=== PATIENT | female | born 1955 | race Caucasian/White ===

== ENCOUNTER 2019-01-23 13:20 | Observation (INO) ==
[2019-01-23] MEDS ORDERED: 0.9 % SODIUM CHLORIDE 1,000 ML IV ONE ×2 (14:00→15:21)
[2019-01-23 14:36] LABS: Basophils # (Auto) 0 K/mcL (0.0-0.3); Basophils % (Auto) 0.7 % (0.0-2.0); Eosinophils # (Auto) 0.1 K/mcL (0.0-0.7); Eosinophils % (Auto) 1.1 % (0.0-7.0); Granulocytes % (Auto) 77.5 % (38.0-78.0); Hematocrit 33.3 % (36.0-48.0); Hemoglobin 11.3 g/dL (12.0-15.0); Lymphocytes # (Auto) 0.9 K/mcL (1.5-4.8); Mean Cell Volume 89.8 fL (80.0-100.0); Mean Corpuscular HGB Conc 33.9 g/dL (31.0-36.0); Mean Platelet Volume 8.8 fL (7.4-10.4); Monocytes # (Auto) 0.3 K/mcL (0.1-0.9); Monocytes % (Auto) 5.7 % (1.0-12.0); Platelet Count 266 K/mcL (140-440); Red Cell Distribution Width 14.6 % (11.5-14.5); WBC 5.9 K/mcL (4.5-11.0)
[2019-01-23 14:54] LABS: ALT/SGPT 12 U/l (0-40); AST/SGOT 17 U/l (0-37); Albumin 4.6 gm/dL (3.2-5.2); Albumin/Globulin Ratio 1.5 (1.0-2.3); Alkaline Phosphatase 72 U/L (39-117); Bilirubin,Total 0.3 mg/dL (0.0-1.0); Blood Urea Nitrogen 45 mg/dl (8-23); Calcium 9.4 mg/dl (8.6-10.4); Carbon Dioxide 24 mmol/L (22-30); Chloride 104 mmol/L (96-108); Glomerular Filtration Rate 23; Glucose 115 mg/dL (70-105)
--- NOTE | 2019-01-23 15:44 | Emergency Department Note ---
General Adult HPI - General Chief complaint: Blood Pressure Problem Stated complaint: low blood pressure. Time Seen by Provider: 01/23/19 13:59 Source: patient Mode of arrival: ambulatory Limitations: no limitations - History of Present Illness HPI Narrative: 63-year-old female presents after being sent over from [facility] with hypotension. She presents with sudden onset of dizziness about an hour prior to arrival there. States she just eaten lunch and went back to work at [employer] when she started getting extremely dizzy. No matter what she did it just will not go away. Movement and sitting still or anything, nothing seemed to help. She felt nauseated related to the dizziness. Does not feel like the room spinning just incredibly dizzy and hard to keep her balance. States it has gotten better since she got here. Denies any recent cough, cold, or illness. No nausea or vomiting. No fever chills. No diarrhea. States she has no idea what this happened all of a sudden. She denies any pain anywhere. No headache. + orthostatic vs at [facility] - Related Data Home Medications Medication Instructions Recorded Confirmed Baclofen [Lioresal] 10 mg PO BID 01/23/19 01/23/19 Lisinopril [Zestril] 10 mg PO DAILY 01/23/19 01/23/19 Previous Rx's Medication Instructions Recorded ergocalciferol (vitamin D2) 50,000 50,000 unit PO QWEEK #10 cap 11/07/18 unit capsule Allergies Allergy/AdvReac Type Severity Reaction Status Date / Time iodine Allergy Unknown Hives Verified 01/23/19 12:54 Penicillins Allergy Unknown Hives Verified 01/23/19 12:54 venom-honey bee Allergy Unknown Verified 01/23/19 12:54 [bee venom (honey bee)] Review of Systems All systems ED: reviewed and negative except as stated. Past Medical History - Past Medical History [facility] Narrative: Medical History (Last Reviewed 01/23/19 @ 13:18 by Maria T Petit DO) BRCA gene positive (Chronic) Hypertension (Chronic) Vitamin B12 deficiency (Chronic) Chest pain (Acute) Nephrolithiasis (Chronic) Urinary tract infection (Acute) Right nephrolithiasis (Chronic) Actinic keratosis (Chronic) Skin tag (Chronic) Acute kidney injury (Acute) Bee sting reaction (Acute) Acute bacterial rhinosinusitis (Acute) Greater trochanteric bursitis of right hip (Chronic) Primary osteoarthritis of left knee (Chronic) Atypical mole (Chronic) Essential hypertension (Chronic) Migraines (Chronic) Joint pain, knee (Chronic) Arthritis (Chronic) Family history of total abdominal hysterectomy and bilateral salpingo- oophorectomy (ARPAN-BSO) (Chronic) Past Surgical History (Last Updated 10/12/18 @ 07:17 by Alysa Arnett) H/O: hysterectomy (Chronic) History of cholecystectomy (Chronic) History of lumpectomy (Chronic) Status post surgery (Chronic) Medical history: Reports: arthritis, hypertension, kidney stones Surgical history ED: Reports: cholecystectomy, hysterectomy, other (Lithotripsy) - Social History smoking status: Never smoker Alcohol use: Reports: Occasionally Drug use: Reports: none Physical Exam Limitations: no limitations General appearance: alert Head: atraumatic, normocephalic, normal inspection Eye: Present: normal appearance. Absent: conjunctival injection ENT: Present: mucous membranes moist Chest: Present: symmetric chest wall rise Respiratory: Present: normal lung sounds bilaterally. Absent: respiratory distress, rales/crackles, accessory muscle use Cardiovascular: Present: regular rate, normal rhythm, normal heart sounds Abdominal: Present: soft, normal bowel sounds. Absent: distention, tenderness, mass Neurological: Present: alert, oriented X3, normal gait Psychiatric: Present: normal affect, normal mood Skin: Present: warm, dry, intact, normal color. Absent: rash, cyanosis, diaphoresis Course Course Narrative: @ 1852 dr ruvalcaba agrees to accept pt. Vital Signs Temperature 97.2 F 01/23/19 13:21 Pulse Rate 77 01/23/19 13:21 Respiratory Rate 18 01/23/19 13:21 Blood Pressure 88/54 01/23/19 13:21 Pulse Oximetry (%) 100 01/23/19 13:21 Temperature 97.2 F 01/23/19 13:21 Pulse Rate 66 01/23/19 18:32 Respiratory Rate 12 01/23/19 18:32 Blood Pressure 130/63 01/23/19 18:32 Pulse Oximetry (%) 100 01/23/19 18:32 Medical Decision Making - Lab Data Lab results reviewed: Yes I reviewed the patient's lab results. Result diagrams: 01/23/19 14:09 01/23/19 14:09 Lab Results 01/23/19 01/23/19 01/23/19 Range/Units 14:06 14:09 14:09 WBC 5.9 (4.5-11.0) K/mcL RBC 3.70 L (4.00-5.20) M/mcL Hgb 11.3 L (12.0-15.0) g/dL Hct 33.3 L (36.0-48.0) % MCV 89.8 (80.0-100.0) fL MCH 30.5 (26.0-34.0) pg MCHC 33.9 (31.0-36.0) g/dL RDW 14.6 H (11.5-14.5) % Plt Count 266 (140-440) K/mcL MPV 8.8 (7.4-10.4) fL Gran % 77.5 (38.0-78.0) % Lymph % (Auto) 15.0 L (15.5-49.0) % Coos % (Auto) 5.7 (1.0-12.0) % Eos % (Auto) 1.1 (0.0-7.0) % Baso % (Auto) 0.7 (0.0-2.0) % Gran # 4.6 (1.8-8.0) K/mcL Lymph # (Auto) 0.9 L (1.5-4.8) K/mcL Coos # (Auto) 0.3 (0.1-0.9) K/mcL Eos # (Auto) 0.1 (0.0-0.7) K/mcL Baso # (Auto) 0 (0.0-0.3) K/mcL Sodium 140 (133-145) mmol/L Potassium 5.1 (3.3-5.1) mmol/L Chloride 104 (96-108) mmol/L Carbon Dioxide 24 (22-30) mmol/L Anion Gap 12.0 (8-16) BUN 45 H (8-23) mg/dl Creatinine 2.2 H (0.6-1.1) mg/dl GFR Calculation 23 Glucose 115 H (70-105) mg/dL Calcium 9.4 (8.6-10.4) mg/dl Total Bilirubin 0.3 (0.0-1.0) mg/dL AST 17 (0-37) U/l ALT 12 (0-40) U/l Alkaline Phosphatase 72 (39-117) U/L Troponin T < 0.01 (0-0.03) ng/ml Total Protein 7.6 (5.9-8.4) gm/dL Albumin 4.6 (3.2-5.2) gm/dL Globulin 3.0 (2.2-3.7) gm/dL Albumin/Globulin Ratio 1.5 (1.0-2.3) Urine Color Urine Appearance Urine pH (5.0-9.0) Ur Specific Downs (1.000-1.035) Urine Protein (NEG) mg/dL Urine Glucose (UA) (NEG) mg/dL Urine Ketones (NEG) mg/dL Urine Occult Blood (<0.03) mg/dL Urine Nitrate (NEG) Urine Bilirubin (NEG) mg/dL Urine Urobilinogen (NEG) mg/dL Ur Leukocyte Esterase (NEG) /uL Urine RBC (0-1) /hpf Urine WBC (0-4) /hpf Ur Squamous Epith Cells (0-4) /hpf Urine Bacteria (0) /hpf Hyaline Casts (0-2) /lpf Urine Mucus (0) /hpf 01/23/19 Range/Units 16:30 WBC (4.5-11.0) K/mcL RBC (4.00-5.20) M/mcL Hgb (12.0-15.0) g/dL Hct (36.0-48.0) % MCV (80.0-100.0) fL MCH (26.0-34.0) pg MCHC (31.0-36.0) g/dL RDW (11.5-14.5) % Plt Count (140-440) K/mcL MPV (7.4-10.4) fL Gran % (38.0-78.0) % Lymph % (Auto) (15.5-49.0) % Coos % (Auto) (1.0-12.0) % Eos % (Auto) (0.0-7.0) % Baso % (Auto) (0.0-2.0) % Gran # (1.8-8.0) K/mcL Lymph # (Auto) (1.5-4.8) K/mcL Coos # (Auto) (0.1-0.9) K/mcL Eos # (Auto) (0.0-0.7) K/mcL Baso # (Auto) (0.0-0.3) K/mcL Sodium (133-145) mmol/L Potassium (3.3-5.1) mmol/L Chloride (96-108) mmol/L Carbon Dioxide (22-30) mmol/L Anion Gap (8-16) BUN (8-23) mg/dl Creatinine (0.6-1.1) mg/dl GFR Calculation Glucose (70-105) mg/dL Calcium (8.6-10.4) mg/dl Total Bilirubin (0.0-1.0) mg/dL AST (0-37) U/l ALT (0-40) U/l Alkaline Phosphatase (39-117) U/L Troponin T (0-0.03) ng/ml Total Protein (5.9-8.4) gm/dL Albumin (3.2-5.2) gm/dL Globulin (2.2-3.7) gm/dL Albumin/Globulin Ratio (1.0-2.3) Urine Color Yellow Urine Appearance Clear Urine pH 5.0 (5.0-9.0) Ur Specific Downs 1.016 (1.000-1.035) Urine Protein Neg (NEG) mg/dL Urine Glucose (UA) Negative (NEG) mg/dL Urine Ketones Neg (NEG) mg/dL Urine Occult Blood Neg (<0.03) mg/dL Urine Nitrate Neg (NEG) Urine Bilirubin Neg (NEG) mg/dL Urine Urobilinogen Neg (NEG) mg/dL Ur Leukocyte Esterase Neg (NEG) /uL Urine RBC 0 (0-1) /hpf Urine WBC 2 (0-4) /hpf Ur Squamous Epith Cells 2 (0-4) /hpf Urine Bacteria 0 (0) /hpf Hyaline Casts 7 H (0-2) /lpf Urine Mucus Mod (0) /hpf - Radiology Data Radiology results reviewed: Yes I reviewed the patient's radiology results. Disposition Pt seen by ORDER ENTRY SPECIALIST/PA only: Yes Clinical Impression: Dehydration, Elevated serum creatinine, Elevated BUN, Dizziness Disposition: Xfer As Outpt/Obs ([facility]) Condition: Fair Referrals: Lakeisha Mcdonald ARNP [Primary Care Provider] - Time of Disposition: 18:55
--- NOTE | 2019-01-23 16:48 | Cat Scan Report ---
CLINICAL INFORMATION: Dizziness TECHNIQUE: Axial noncontrast images through the brain. Sagittal and coronal reformatted images. COMPARISON: None. FINDINGS: 8mm focal density in the left frontal lobe. This is intra-axial. No surrounding vasogenic edema or mass effect. Etiology is not certain. This may be a benign lesion such as cavernous angioma. Primary neoplasms such as oligodendroglioma is less likely due to the absence of mass effect or edema. Solitary metastasis is also less likely. MRI scan without and with contrast material contrast material is recommended for further evaluation. If there are comparison studies they should be reviewed. Right cerebral hemisphere is negative. No focal intra-axial abnormality. Brain volume is normal. There is no hydrocephalus. Brainstem and cerebellum are negative. No extra-axial, intracranial abnormality. No subdural hematoma. No subarachnoid hemorrhage. Basilar cisterns are normal. No calvarial lesion. Temporal bones are negative IMPRESSION: 1. 8 mm intra-axial mass in the left frontal lobe. 2. Increased density within this mass. No surrounding vasogenic edema or mass effect. Appearance is most consistent with a benign intra-axial process such as cavernous angioma. MRI scan with contrast material is recommended for further evaluation. 3. No other abnormality. Interpreted and Authenticated by: Barry Robles 01/23/19
[2019-01-23] MEDS ORDERED: LORazepam 2 MG/ML VIAL IV ONE (17:06)
[2019-01-23 17:25] LABS: Appearance,Urine CLEAR; Bacteria,Urine 0 /hpf (0); Bilirubin,Urine NEG (NEG); Color,Urine YELLOW; Glucose,Urine (UA) NEGATIVE (NEG); Ketones,Urine NEG (NEG); Leukocyte Esterase,Urine NEG /uL (NEG); Mucus,Urine MOD /hpf (0); Nitrate,Urine NEG (NEG); Protein,Urine NEG (NEG); Specific Gravity,Urine 1.016 (1.000-1.035); Urine Blood NEG mg/dL (<0.03); Urine Hyaline Cast 7 /lpf (0-2); Urine RBC 0 /hpf (0-1); Urine Squamous Epithelial Cell 2 /hpf (0-4); Urine WBC 2 /hpf (0-4); Urobilinogen,Urine NEG (NEG)
--- NOTE | 2019-01-23 18:46 | Magnetic Resonance Report ---
CLINICAL INFORMATION: Follow-up abnormal CT scan TECHNIQUE: Sagittal, axial, coronal images of the brain. Contrast material could not be administered as this patient has a history of renal failure COMPARISON: CT scan dated 01/23/2019 FINDINGS: Focal area of susceptibility in the left frontal lobe. This corresponds in location to the dense abnormality on CT scan. There is no surrounding vasogenic edema. There is no mass effect. Appearance is consistent with a benign lesion and is probably a cavernous angioma. There may be a very small focus of susceptibility in the periventricular white matter, posterior right holland radiata. His could be a very small cavernous angioma. No other focal areas of susceptibility. No other focal signal abnormalities. There is no restricted diffusion. Brain volume is normal. No hydrocephalus. Brainstem and cerebellum are negative. No extra-axial, intracranial abnormality. Normal flow void within vessels at the base of the brain Temporal bones are negative. Paranasal sinuses are negative IMPRESSION: 1. Focal area of susceptibility in the left frontal lobe. No associated mass effect or vasogenic edema 2. Findings are consistent with incidental cavernous angioma 3. No acute abnormality Interpreted and Authenticated by: Barry Robles 01/23/19
--- NOTE | 2019-01-23 18:59 | Internal Med History&Physical ---
Medical - H&P: HPI Patient information: Note initiated : 01/23/19 at 6:55 pm Service Date, if different from initiated Date: [] Patient: Claudette Richardson a 63 y/o F admitted on for Low Blood Pressure.. Chief Complaint: [] Chief complaint: Dizziness and weakness History of present illness: Ms. Richardson is a 63 year old F with a known history of hypertension/chronic back pain and migraine who presents to the ER along with her after experiencing sudden onset dizziness that started while at work and bilirubin. Patient noted an intense sensation of spinning along with difficulty balancing. Symptoms persisted for over 30 minutes without any relief. She endorses associated nausea/headache but denies vision changes or unilateral weakness or chest palpitation/tearing neck pain. With increasing concerns to presents to the ER. Initial work-up was consistent with hypotension/elevated creatinine at 2.2 from a baseline of 1.2. CT head/MRI brain did not reveal any acute event/stroke. Subsequently hospitalist service was consulted. She was positive on orthostatics. Patient denies recent diarrhea dysuria/dehydration or diuretic use. She further denies overdosing on antihypertensives. She usually drinks 3 to 4 quarts of water a day. At the time of evaluation patient is accompanied with her . He was able to provide answer to most of the questions. She endorses to history as above. Denies prior similar episodes, blurred vision, loss of consciousness, diarrhea or dysuria. She was recently treated for UTI last month. Review of systems A 10 point review of system was performed and is negative except was discussed above Medical - H&P: PMH Medical history: BRCA gene positive (Chronic) Hypertension (Chronic) Vitamin B12 deficiency (Chronic) Chest pain (Acute) Nephrolithiasis (Chronic) Urinary tract infection (Acute) Right nephrolithiasis (Chronic) Actinic keratosis (Chronic) Skin tag (Chronic) Acute kidney injury (Acute) Acute kidney injury on 03/09/17 with slow recovery in the following 10 days. No blood work available since 03/18/17. Renal panel today. If abnormal further work up and follow up will be scheduled. . Bee sting reaction (Acute) Acute bacterial rhinosinusitis (Acute) Greater trochanteric bursitis of right hip (Chronic) Primary osteoarthritis of left knee (Chronic) Atypical mole (Chronic) Essential hypertension (Chronic) Migraines (Chronic) Joint pain, knee (Chronic) Arthritis (Chronic) Family history of total abdominal hysterectomy and bilateral salpingo- oophorectomy (ARPAN-BSO) (Chronic) Surgical History H/O: hysterectomy (Chronic) History of cholecystectomy (Chronic) History of lumpectomy (Chronic) Status post surgery (Chronic) Kidney stone removal Family History Father Lung cancer Unknown Diabetes Paternal Mother Brain aneurysm Social History marital status: physical activity: walking smoking status: Never smoker alcohol intake frequency: a few times a month substance use type: does not use seatbelt use: always Medical - H&P: Meds Home Medications Medication Instructions Recorded Confirmed Type ergocalciferol (vitamin D2) 50,000 50,000 unit PO QWEEK #10 cap 11/07/18 Rx unit capsule Baclofen [Lioresal] 10 mg PO BID 01/23/19 01/23/19 History Lisinopril [Zestril] 10 mg PO DAILY 01/23/19 01/23/19 History Allergies Allergy/AdvReac Type Severity Reaction Status Date / Time iodine Allergy Unknown Hives Verified 01/23/19 12:54 Penicillins Allergy Unknown Hives Verified 01/23/19 12:54 venom-honey bee Allergy Unknown Verified 01/23/19 12:54 [bee venom (honey bee)] Medical - H&P: Exam - Constitutional Vitals: Temp Pulse Resp BP Pulse Ox 97.2 F 66 12 130/63 100 01/23/19 13:21 01/23/19 18:32 01/23/19 18:32 01/23/19 18:32 01/23/19 18:32 General appearance: no acute distress Exam: Obese Head normocephalic Oral cavity dry Eye movement symmetrical No ear nose discharge Neck no lymphadenopathy or JVD S1-S2 regular rhythm no murmur Diminished breath sounds bases abdomen soft nontender nondistended pendulous lower extremity no cyanosis clubbing no joint swelling Skin no suspicious lesion Psych alert cooperative but mildly anxious Neuro nonfocal Medical - H&P: Reslt - Labs CBC & Chem 7: 01/23/19 14:09 01/23/19 14:09 Labs: Short CBC 01/23/19 Range/Units 14:09 WBC 5.9 (4.5-11.0) K/mcL Hgb 11.3 L (12.0-15.0) g/dL Hct 33.3 L (36.0-48.0) % Plt Count 266 (140-440) K/mcL BMP 01/23/19 14:09 Sodium 140 Potassium 5.1 Chloride 104 Carbon Dioxide 24 BUN 45 H Creatinine 2.2 H Glucose 115 H Calcium 9.4 Cardiac Enzymes 01/23/19 Range/Units 14:06 Troponin T < 0.01 (0-0.03) ng/ml Liver Function 01/23/19 Range/Units 14:09 Total Bilirubin 0.3 (0.0-1.0) mg/dL AST 17 (0-37) U/l ALT 12 (0-40) U/l Alkaline Phosphatase 72 (39-117) U/L Albumin 4.6 (3.2-5.2) gm/dL Urine 01/23/19 Range/Units 16:30 Urine Color Yellow Urine Appearance Clear Urine pH 5.0 (5.0-9.0) Ur Specific Mart 1.016 (1.000-1.035) Urine Protein Neg (NEG) mg/dL Urine Glucose (UA) Negative (NEG) mg/dL Medical - H&P: A/P (1) Acute kidney injury Problem details: Current visit: Yes Status: Acute * Acute on chronic kidney injury. Creatinine elevation over 80% of baseline now at 2.2. Likely prerenal. Check renal ultrasound and rule out obstructive uropathy. Check UA. Hold STEPAN inhibitor. * Severe dizziness secondary to orthostatic hypotension and volume depletion. Continue crystalloids. MRI brain no evidence of brainstem/cerebellar CVA. Echocardiogram to rule out valvular insufficiency. Check carotid ultrasound * Orthostatic hypotension. Hold antihypertensives. Check echocardiogram to rule out valvular etiology. Continue crystalloids and encourage oral fluids intake. * History of chronic back pain continue baclofen * History of migraine continue as needed Tylenol/Excedrin * Full code * Prophylaxis heparin Plan * Observation admit * Crystalloids * Monitor renal function * Echocardiogram/carotid ultrasound * Renal ultrasound
[2019-01-23] MEDS ORDERED: MELATONIN 3 MG TABLET PO PRN (21:08)
[2019-01-23] MEDS ORDERED: MAGNESIUM SULFATE 2 GM/50 ML BAG IV PRN (21:08)
[2019-01-23] MEDS ORDERED: POTASSIUM CHLORIDE 20 MEQ PACKET PO PRN (21:08)
[2019-01-23] MEDS ORDERED: ACETAMINOPHEN 325 MG TABLET PO PRN (21:08)
[2019-01-23] MEDS ORDERED: guaiFENesin/CODEINE 10 ML UDC PO PRN (21:08)
[2019-01-23] MEDS ORDERED: ONDANSETRON 4 MG/2 ML VIAL IV PRN (21:08)
[2019-01-23] MEDS ORDERED: ACETAMINOPHEN 650 MG/65 ML BOTTLE IV PRN (21:08)
[2019-01-23] MEDS ORDERED: SENNOSIDES/DOCUSATE SODIUM 1 TAB TABLET PO SCH (21:08)
[2019-01-23] MEDS: 0.9 % SODIUM CHLORIDE 1,000 ML IV SCH (21:22)
[2019-01-23] MEDS: 0.9 % SODIUM CHLORIDE 10 ML SYRINGE IV SCH (21:23)
[2019-01-23] MEDS: DOCUSATE SODIUM 100 MG CAPSULE PO SCH (21:32)
[2019-01-23] MEDS: HEPARIN 5,000 UNIT/ML VIAL SQ SCH (21:33)
--- NOTE | 2019-01-24 05:47 | Ultrasound Report ---
CLINICAL INFORMATION: Dizziness COMPARISON: None. TECHNIQUE: Carotid arteries were imaged in sagittal and transverse planes using 5 mHz linear probe: Doppler, color, and 2D. FINDINGS: There is atherosclerotic plaque in the common carotid arteries and proximal internal carotid arteries bilaterally. Plaque appears bilaterally symmetric and is considered moderate. Plaque is heterogeneous without discrete ulceration. No significant flow disturbance. No velocity elevation. No hemodynamically significant stenosis Maximum Systolic Flow Velocity: - Right common carotid artery: 109 cm/sec - Right internal carotid artery: 87 cm/sec - Left common carotid artery: 90 cm/sec - Left internal carotid artery: 91 cm/sec Vertebral arteries are antegrade patent bilaterally IMPRESSION: 1. Atherosclerotic plaque in the common carotid arteries and internal carotid arteries bilaterally. 2. No hemodynamically significant stenosis Interpreted and Authenticated by: Barry Robles 01/24/19
[2019-01-24 05:52] LABS: Hematocrit 29.4 % (36.0-48.0); Hemoglobin 10.2 g/dL (12.0-15.0); Mean Corpuscular HGB Conc 34.9 g/dL (31.0-36.0); Mean Platelet Volume 9.8 fL (7.4-10.4); Platelet Count 186 K/mcL (140-440); RBC 3.27 M/mcL (4.00-5.20); Red Cell Distribution Width 14.2 % (11.5-14.5); WBC 6.3 K/mcL (4.5-11.0)
[2019-01-24] MEDS: 0.9 % SODIUM CHLORIDE 10 ML SYRINGE IV SCH (06:03)
[2019-01-24 06:28] LABS: ALT/SGPT 10 U/l (0-40); AST/SGOT 16 U/l (0-37); Albumin 3.4 gm/dL (3.2-5.2); Albumin/Globulin Ratio 1.3 (1.0-2.3); Alkaline Phosphatase 74 U/L (39-117); Bilirubin,Direct < 0.2 mg/dL (0.0-0.3); Bilirubin,Total 0.2 mg/dL (0.0-1.0); Blood Urea Nitrogen 41 mg/dl (8-23); Calcium 8.6 mg/dl (8.6-10.4); Carbon Dioxide 20 mmol/L (22-30); Chloride 111 mmol/L (96-108); Globulin 2.6 gm/dL (2.2-3.7); Glomerular Filtration Rate 28; Glucose 94 mg/dL (70-105); Lactate Dehydrogenase 183 U/L (94-250); Phosphorous 4.5 mg/dL (2.7-4.5); Triglycerides 109 mg/dl (<150); Uric Acid 7.1 mg/dL (2.5-8.0)
[2019-01-24] MEDS: 0.9 % SODIUM CHLORIDE 1,000 ML IV SCH (08:03)
--- NOTE | 2019-01-24 08:28 | Ultrasound Report ---
CLINICAL INFORMATION: Renal failure TECHNIQUE: Pickering scale and color flow Doppler spectral imaging COMPARISON: None. FINDINGS: Right kidney measures 9.5 x 4.4 x 5.1 cm. No solid or cystic mass. No detectable calculi. There is no hydronephrosis. Normal renal cortex. Left kidney measures 10.7 x 4.8 x 5.8 cm. No solid or cystic mass. There is no hydronephrosis. No detectable calculi. Normal renal cortex. Prevoid bladder volume measures 82 mL. Bilateral ureteral jets identified. No significant post void residual IMPRESSION: Negative renal ultrasound Interpreted and Authenticated by: Barry Robles 01/24/19
[2019-01-24] MEDS ORDERED: LISINOPRIL 10 MG TABLET PO SCH (09:00)
[2019-01-24] MEDS ORDERED: MULTIVIT,THER IRON,CA,FA & MIN 1 TABLET PO SCH (09:00)
[2019-01-24] MEDS: DOCUSATE SODIUM 100 MG CAPSULE PO SCH (09:29)
[2019-01-24] MEDS: HEPARIN 5,000 UNIT/ML VIAL SQ SCH (09:31)
[2019-01-24 09:36] LABS: Eosinophils % (Manual) 1 % (0-7); Lymphocytes % 24 % (15-49); Monocytes % (Manual) 6 % (1-12); Platelet Estimate NORMAL (NORMAL); RBC Morphology NORMAL (NORMAL); Reactive Lymphocytes 1 % (0-2); Segmented Neutrophils % 68 % (38-78)
--- NOTE | 2019-01-24 12:14 | Discharge Summary ---
Medical - DS: Prov Patient information: Note initiated : 01/24/19 at 12:12 pm Service Date, if different from initiated Date: [] Patient: Claudette Richardson a 63 y/o F admitted on 01/23/19 for Low Blood Pressure.. Chief Complaint: [] Date of admission: 01/23/19 19:50 Discharge date: 01/24/19 Primary care physician: Lakeisha Mcdonald Consults: 01/23/19 18:54 Consult to Physician [CONS] Stat Comment: Consulting Provider: Bart Rios Reason For Exam: Physician to Consult Medical - DS: Meds - Discharge Medications Prescriptions: Melatonin [Melatonin 3Mg Tablet] 3 mg PO HSP PRN #30 tab PRN Reason: Insomnia Transmission Status: Pending to [facility] Active and Home Medications: Home Medications ergocalciferol (vitamin D2) 50,000 unit capsule 50,000 unit PO QWEEK #10 cap 11/07/18 [Rx Confirmed 01/23/19 Last Taken 01/23/19 06:00] Baclofen [Lioresal] 10 mg PO BID 01/23/19 [History Confirmed 01/23/19 Last Taken 01/23/19 06:00] Lisinopril [Zestril] 5 mg PO DAILY #0 tab 01/24/19 [Rx Last Taken Unknown] Medical - DS: Hosp Hospital Course: Discharge diagnosis * Acute on chronic kidney injury. Creatinine elevation over 80% of baseline on presentation but now down from 2.2-1.9. Clinically improving with adequate hydration. Lower dose of lisinopril to 5 mg. Recommend adequate hydration on discharge. Renal ultrasound negative. Recommend outpatient follow-up with nephrology/BMP on discharge * Severe dizziness secondary to orthostatic hypotension and volume depletion. Clinically resolved with aggressive crystalloids. Neuroimaging/carotid ultrasound negative * Orthostatic hypotension. Secondary to volume depletion. Lower dose of lisinopril to 5 mg. Continue adequate oral fluids * History of chronic back pain -part of the symptoms may be attributed to baclofen. Advised to hold baclofen for 1 week * History of migraine continue as needed Tylenol/Excedrin Brief hospital course Ms. Richardson is a 63 year old F with a known history of hypertension/chronic back pain and migraine who presents to the ER along with her after experiencing sudden onset dizziness that started while at work and bilirubin. Patient noted an intense sensation of spinning along with difficulty balancing. Symptoms persisted for over 30 minutes without any relief. She endorses associated nausea/headache but denies vision changes or unilateral weakness or chest palpitation/tearing neck pain. With increasing concerns to presents to the ER. Initial work-up was consistent with hypotension/elevated creatinine at 2.2 from a baseline of 1.2. CT head/MRI brain did not reveal any acute event/stroke. Subsequently hospitalist service was consulted. She was positive on orthostatics. Patient denies recent diarrhea dysuria/dehydration or diuretic use. She further denies overdosing on antihypertensives. She usually drinks 3 to 4 quarts of water a day. At the time of evaluation patient is accompanied with her . He was able to provide answer to most of the questions. She endorses to history as above. Denies prior similar episodes, blurred vision, loss of consciousness, diarrhea or dysuria. She was recently treated for UTI last month. 01/24-patient doing well. No overnight events. Dizziness resolved. Pressure is much improved. Currently 120 systolic on 5 mg lisinopril. Creatinine downtrending from 2.2-1.9. Recommend follow-up with nephrology as outpatient. I recommend BMP but prior to follow-up with nephrology. Neuroimaging unremarkable. Discharge diagnosis: . - Time Spent with Patient Total time spent providing and/or coordinating discharge services: Greater than 30 minutes Medical - DS: Exam - Constitutional Vitals: Vital Signs Temp Pulse Pulse Resp BP BP BP 01/24/19 11:43 98 F 83 16 122/66 01/24/19 08:00 97.8 F 57 L 16 115/64 01/24/19 02:46 97.3 F 70 16 131/76 01/23/19 23:32 97.6 F 69 12 118/62 01/23/19 19:55 97.5 F 66 16 165/90 01/23/19 19:53 64 12 123/66 01/23/19 19:41 64 123/66 01/23/19 19:21 64 12 127/65 01/23/19 19:01 12 131/69 01/23/19 18:41 67 14 121/61 01/23/19 18:32 66 12 130/63 01/23/19 17:46 67 13 01/23/19 17:41 76 13 142/72 01/23/19 17:27 70 16 119/79 01/23/19 17:22 78 19 72/62 01/23/19 17:01 67 18 127/63 01/23/19 16:52 81 12 123/83 01/23/19 16:50 68 20 139/73 01/23/19 16:16 74 16 129/59 01/23/19 16:14 75 17 01/23/19 16:01 14 144/75 01/23/19 15:46 66 14 124/62 01/23/19 15:31 62 13 118/68 01/23/19 15:16 62 12 109/59 01/23/19 15:01 59 L 11 L 109/56 01/23/19 14:57 62 11 L 01/23/19 14:46 60 13 111/57 01/23/19 14:40 58 L 14 01/23/19 14:31 59 L 13 105/54 01/23/19 14:16 15 99/51 01/23/19 14:01 20 92/54 01/23/19 13:46 71 16 89/43 01/23/19 13:34 71 16 91/44 01/23/19 13:21 97.2 F 77 18 88/54 Pulse Ox 01/24/19 11:43 99 01/24/19 08:00 100 01/24/19 02:46 100 01/23/19 23:32 96 01/23/19 19:55 100 01/23/19 19:53 99 01/23/19 19:41 99 01/23/19 19:21 99 01/23/19 19:01 01/23/19 18:41 100 01/23/19 18:32 100 01/23/19 17:46 100 01/23/19 17:41 99 01/23/19 17:27 100 01/23/19 17:22 99 01/23/19 17:01 100 01/23/19 16:52 100 01/23/19 16:50 98 01/23/19 16:16 100 01/23/19 16:14 100 01/23/19 16:01 01/23/19 15:46 100 01/23/19 15:31 100 01/23/19 15:16 100 01/23/19 15:01 100 01/23/19 14:57 99 01/23/19 14:46 100 01/23/19 14:40 100 01/23/19 14:31 100 01/23/19 14:16 01/23/19 14:01 01/23/19 13:46 100 01/23/19 13:34 100 01/23/19 13:21 100 Intake and Output 01/23/19 01/24/19 01/24/19 21:59 05:59 13:59 Intake Total 2800 800 1940 Output Total 100 425 950 Balance 2700 375 990 Intake: IV 2000 1000 Sodium Chloride 0.9% 1,000 ml @ 2000 1000 100 mls/hr IV .Q10H ROMIE Rx#: [id number] Oral 800 800 940 Output: Void Amount 100 425 950 Other: Meal Dinner Breakfast Percent of Meal Consumed 100% 100% Feeding Ability Independent Assist with Tray Set Up Urine Appearance Clear Clear Clear Urine Color Bright Yellow Bright Yellow Bright Yellow Urine Odor Normal Stool Size Moderate Stool Color Brown Stool Consistency Normal for Patient Formed Weight 249 lb 9.6 oz Medical - DS: Data Labs on day of discharge: Labs from last 24 hours 01/24/19 01/24/19 01/23/19 04:30 04:30 16:30 WBC 6.3 RBC 3.27 L Hgb 10.2 L Hct 29.4 L MCV 90.0 MCH 31.4 MCHC 34.9 RDW 14.2 Plt Count 186 MPV 9.8 Gran % Lymph % (Auto) Lake % (Auto) Eos % (Auto) Baso % (Auto) Gran # Lymph # (Auto) Lake # (Auto) Eos # (Auto) Baso # (Auto) Total Counted 100 Seg Neutrophils % 68 Band Neutrophils % Not Reportable Lymphocytes % 24 Monocytes % (Manual) 6 Eosinophils % (Manual) 1 Reactive Lymphocytes 1 Platelet Estimate Normal RBC Morphology Normal Sodium 143 Potassium 4.8 Chloride 111 H Carbon Dioxide 20 L Anion Gap 12.0 BUN 41 H Creatinine 1.9 H GFR Calculation 28 Glucose 94 Uric Acid 7.1 Calcium 8.6 Phosphorus 4.5 Magnesium 2.0 Total Bilirubin 0.2 Direct Bilirubin < 0.2 GGT 4 L AST 16 ALT 10 Alkaline Phosphatase 74 Lactate Dehydrogenase 183 Troponin T Total Protein 6.0 Albumin 3.4 Globulin 2.6 Albumin/Globulin Ratio 1.3 Triglycerides 109 Urine Color Yellow Urine Appearance Clear Urine pH 5.0 Ur Specific [place] 1.016 Urine Protein Neg Urine Glucose (UA) Negative Urine Ketones Neg Urine Occult Blood Neg Urine Nitrate Neg Urine Bilirubin Neg Urine Urobilinogen Neg Ur Leukocyte Esterase Neg Urine RBC 0 Urine WBC 2 Ur Squamous Epith Cells 2 Urine Bacteria 0 Hyaline Casts 7 H Urine Mucus Mod 01/23/19 01/23/19 01/23/19 14:09 14:09 14:06 WBC 5.9 RBC 3.70 L Hgb 11.3 L Hct 33.3 L MCV 89.8 MCH 30.5 MCHC 33.9 RDW 14.6 H Plt Count 266 MPV 8.8 Gran % 77.5 Lymph % (Auto) 15.0 L Lake % (Auto) 5.7 Eos % (Auto) 1.1 Baso % (Auto) 0.7 Gran # 4.6 Lymph # (Auto) 0.9 L Lake # (Auto) 0.3 Eos # (Auto) 0.1 Baso # (Auto) 0 Total Counted Seg Neutrophils % Band Neutrophils % Lymphocytes % Monocytes % (Manual) Eosinophils % (Manual) Reactive Lymphocytes Platelet Estimate RBC Morphology Sodium 140 Potassium 5.1 Chloride 104 Carbon Dioxide 24 Anion Gap 12.0 BUN 45 H Creatinine 2.2 H GFR Calculation 23 Glucose 115 H Uric Acid Calcium 9.4 Phosphorus Magnesium Total Bilirubin 0.3 Direct Bilirubin GGT AST 17 ALT 12 Alkaline Phosphatase 72 Lactate Dehydrogenase Troponin T < 0.01 Total Protein 7.6 Albumin 4.6 Globulin 3.0 Albumin/Globulin Ratio 1.5 Triglycerides Urine Color Urine Appearance Urine pH Ur Specific [place] Urine Protein Urine Glucose (UA) Urine Ketones Urine Occult Blood Urine Nitrate Urine Bilirubin Urine Urobilinogen Ur Leukocyte Esterase Urine RBC Urine WBC Ur Squamous Epith Cells Urine Bacteria Hyaline Casts Urine Mucus Medical - DS: A/P - Patient/Caregiver Discharge Instructions Activity: increase activity as tolerated Diet: Renal Additional Instructions: Follow-up with nephrology in 7 to 10 days Recommend BMP 3 days prior to follow-up with nephrology. Please fax results nephrology clinic Hold baclofen for 1 week as symptoms may be attributed to baclofen adverse reaction Lower dose of lisinopril to 5 mg Return to ER if worsening symptoms noted Prescriptions: Melatonin [Melatonin 3Mg Tablet] 3 mg PO HSP PRN #30 tab PRN Reason: Insomnia Transmission Status: Pending to [facility] - Problem Maintenance (1) Acute kidney injury Status: Acute Comment: - Follow up Plan Follow up with: Lakeisha Mcdonald ARNP [Primary Care Provider] - Disposition: Home, Self-Care Prognosis: Fair Rehab Potential: Fair I certify that the patient requires SNF services: No Overall status at discharge: patient is progressing back to baseline Medical - DS: Qual - VTE Deep Vein Thrombosis/Pulmonary Embolism Present on Admission: No
== END 2019-01-24 13:25 | disposition home or self-care (01) ==
LOC: MEDSUR 13:20 → ED 13:20 → MEDSUR 19:55
PROVIDERS: ADMIT Internal Medicine; ATTEND Internal Medicine